=== PATIENT | male | born 1960 | race Caucasian/White ===

== ENCOUNTER → 2016-09-30 | Emergency (ER) | payer OTHER ==
[~2016-09-30] VITALS: Ht 195.6 cm; Wt 131.5 kg
[~2016-09-30] MED LIST: ATORVASTATIN CA20 MG ORAL; DESCOVY 200-251 EACH PO; DOXYCYCLINE MO100 MG ORAL; LOSARTAN POTASS25 MG ORAL; PERMETHRIN60 GM TOPIC; TIVICAY50 MG ORAL; VALACYCLOVIR500 MG ORAL; VITAMIN D400 INTLU ORAL; VYVANSE70 MG ORAL
[2016-09-30 11:01] VITALS: BP 138/90
[2016-09-30 12:05] VITALS: BP 138/90
--- NOTE | 2016-09-30 12:25 | Emergency Room Report ---
History of Present Illness General Chief Complaint: Skin Rash/Abscess Source: Patient Present Illness HPI This patient states that he returned from the [facility] several days ago and noted an itchy rash developing on his body. He does not recall a tick bite. He is unsure whether there were insect bites that he suffered. He states it is very itchy. He denies fever chills. Denies nausea or vomiting. He denies chest pain or shortness of breath. He has no other complaints. Allergies: Coded Allergies: No Known Allergies (Unverified , 09/30/16) Patient History Past Medical History: see triage record, HIV - undetectable viral load. Social History: Denies: alcohol use, drug use, smoking Reviewed Nursing Documentation: PMH: Agreed, PSxH: Agreed Nursing Documentation-PMH Past Medical History: No Stated History Hx Hypertension: Yes Physical Exam Vital Signs Date Time Temp Pulse Resp B/P Pulse Ox O2 Delivery O2 Flow Rate FiO2 09/30/16 10:44 98.1 101 16 138/90 100 Room Air Sp02 EP Interpretation: reviewed, normal General Appearance: no apparent distress, alert, GCS 15, non-toxic Head: normocephalic, atraumatic Eyes: bilateral eye PERRL, bilateral eye normal inspection ENT: hearing grossly normal, normal pharynx, no angioedema, normal voice Neck: full range of motion, supple/symm/no masses Respiratory: chest non-tender, lungs clear, normal breath sounds, speaking full sentences Cardiovascular #1: regular rate, rhythm, no edema Gastrointestinal: normal bowel sounds, non tender, soft, non-distended, no guarding, no rebound Rectal: deferred Musculoskeletal: back normal, gait/station normal, normal range of motion, non- tender Neurologic: alert, oriented x3, responsive, motor strength/tone normal, sensory intact, speech normal Psychiatric: judgement/insight normal, memory normal, mood/affect normal, no suicidal/homicidal ideation Skin: warm/dry, well hydrated, other - Scattered areas of erythema of different sizes on arms, trunk, legs. A couple of them have central clearing. There are associated excoriations consistent with scratching. Medical Decision Making Diagnostic Impression: Primary Impression: Rash and other nonspecific skin eruption ER Course This patient has a pruritic rash. He was recently in the [facility]. He is concerned Lyme disease. This is a possibility although he did not have a tick bite. The rash is not classic Lyme disease morphology. There are a couple lesions that do have central clearing that could be erythema migrans. I will go ahead and treat this patient with doxycycline for 21 days. I will also give the patient permethrin cream for possible scabies given how pruritic lesions are. Regardless, this is not an emergency medical condition. Patient is instructed to followup closely with his primary care physician for further evaluation and treatment of this rash. Last Vital Signs Date Time Temp Pulse Resp B/P Pulse Ox O2 Delivery O2 Flow Rate FiO2 09/30/16 12:05 98.1 16 138/90 100 Room Air 09/30/16 10:44 101 Disposition: HOME, SELF-CARE Condition: Stable Referrals: NON PHYSICIAN (PCP) DONOVAN NEAL D.O. Sep 30, 2016 12:25
== END | disposition home or self-care (01) ==
LOC: EMR 11:25
DX: R21 Rash and other nonspecific skin eruption (principal); I10 Essential (primary) hypertension
CPT/HCPCS: 99284